=== PATIENT | male | born 1950 | race Caucasian/White ===

== ENCOUNTER → 2023-07-08 07:31 | Outpatient (REF) | payer OTHER, SELFPAY ==
[2023-07-08 09:36] LABS: PSA, Total - Diagnostic 0.75 ng/ml (0.0-4.0)
== END ==
LOC: REG 07:31
PROVIDERS: ATTENDING PHYSICIAN Urology; FAMILY PHYSICIAN Family Medicine
DX: Z12.5 Encounter for screening for malignant neoplasm of prostate (principal); R97.20 Elevated prostate specific antigen [PSA]
CPT/HCPCS: 36415; 84153